=== PATIENT | female | born 1990 | race Two or more races ===

== ENCOUNTER 2022-07-18 07:32 | Outpatient (CLI) | payer BC | END 2022-07-18 07:33 | disposition home or self-care (01) | LOC: SCSMRI 07:32 | PROVIDERS: ATTEND Internal Medicine Gastroenterology | DX: R10.13 Epigastric pain (principal); K21.9 Gastro-esophageal reflux disease without esophagitis; R19.4 Change in bowel habit; Z90.49 Acquired absence of other specified parts of digestive tract | CPT/HCPCS: 74183; 82565 ==

== ENCOUNTER 2022-07-30 10:42 | Outpatient (CLI) | payer BC | END 2022-07-30 10:43 | disposition home or self-care (01) | LOC: TBSIIMAG 10:42 | PROVIDERS: ATTEND Orthopaedic Surgery | DX: M12.811 Other specific arthropathies, not elsewhere classified, right shoulder (principal); S46.811A Strain of other muscles, fascia and tendons at shoulder and upper arm level, right arm, initial encounter ==